=== PATIENT | male | born 1935 | race Caucasian/White ===

== ENCOUNTER 2016-08-19 07:44 | Inpatient (IN) | payer MEDICARE, BC ==
--- NOTE | 2016-08-19 08:22 | ED ---
General Adult HPI - General Chief complaint: Neuro Symptoms/Deficit Stated complaint: weakness Time Seen by Provider: 08/19/16 07:50 Source: patient, RN notes reviewed Mode of arrival: EMS - History of Present Illness Initial comments: This is a 80-year-old male who presents to the emergency department complaining of some weakness in his left leg as well as tingling in his face arm. Patient states she woke up at 5:30 this morning with those symptoms. Patient states last night prior to going to bed he was arguing with his and he was symptom -free. Patient states he has sensation in his face and arm but is just tingling. Patient states she has no weakness in his face arm he has no slurred speech. Denies any blurred vision. Patient denies any headache. Patient states his leg can move just fine but when he goes to walk on he feels like his left knee is giving out on him. Patient has no numbness of his leg. Patient denies any right-sided symptoms. Patient denies any chest pain difficulty breathing or shortness of breath. Patient denies any abdominal pain patient denies nausea vomiting diarrhea. Patient denies any recent history of fever chills or cough. Patient denies lightheadedness dizziness or near syncopal episode. Patient denies any recent injury or trauma. - Related Data Allergies Allergy/AdvReac Type Severity Reaction Status Date / Time Penicillins Allergy Unknown Verified 08/19/16 08:24 aspirin AdvReac Nausea & Verified 08/19/16 08:24 Vomiting Review of Systems ROS Statement: Those systems with pertinent positive or pertinent negative responses have been documented in the HPI. ROS Other: All systems not noted in ROS Statement are negative. Past Medical History Past Medical History: Diabetes Mellitus History of Any Multi-Drug Resistant Organisms: None Reported Past Surgical History: Coronary Bypass/CABG Past Psychological History: No Psychological Hx Reported Smoking Status: Former smoker Past Alcohol Use History: None Reported Past Drug Use History: None Reported General Exam - General Exam Comments Initial Comments: GENERAL: Patient is well-developed and well-nourished. Patient is nontoxic and well- hydrated and is in mild distress. ENT: Neck is soft and supple. No significant lymphadenopathy is noted. Oropharynx is clear. Moist mucous membranes. Neck has full range of motion without eliciting any pain. EYES: The sclera were anicteric and conjunctiva were pink and moist. Extraocular movements were intact and pupils were equal round and reactive to light. Eyelids were unremarkable. PULMONARY: Unlabored respirations. Good breath sounds bilaterally. No audible rales rhonchi or wheezing was noted. CARDIOVASCULAR: There is a regular rate and rhythm without any murmurs gallops or rubs. ABDOMEN: Soft and nontender with normal bowel sounds. No palpable organomegaly was noted. There is no palpable pulsatile mass. SKIN: Skin is clear with no lesions or rashes and otherwise unremarkable. NEUROLOGIC: Patient is alert and oriented x3. Cranial nerves II through XII are grossly intact. Motor and sensory are also intact. Normal speech, volume and content. Symmetrical smile. MUSCULOSKELETAL: Normal extremities with adequate strength and full range of motion. No lower extremity swelling or edema. No calf tenderness. LYMPHATICS: No significant lymphadenopathy is noted PSYCHIATRIC: Normal psychiatric evaluation. Course Vital Signs 08/19/16 08/19/16 07:46 09:36 Temperature 97.8 F Pulse Rate 68 64 Respiratory 18 18 Rate Blood Pressure 125/75 143/66 O2 Sat by Pulse 98 95 Oximetry Medical Decision Making - Medical Decision Making EKG shows sinus rhythm at 61 bpm. It was 264 QRS is 90 QT intervals 476 QTC is 479. EKG shows no ST segment elevation or depression or T wave normalities are noted. Chest x-ray shows no acute abnormality. Computed tomography scan of the head shows no acute abnormality. Patient still continues to feel the tingling in the side of his face and arm and he feels as though his legs weaker even though has full range of motion of his leg. I spoke with Dr. Cancino agreed to admit the patient admitted the patient and consulted neurology. - Lab Data Result diagrams: 08/19/16 08:31 08/19/16 08:31 Lab Results 08/19/16 08/19/16 08/19/16 Range/Units 08:31 08:31 08:31 WBC 6.2 (3.8-10.6) k/uL RBC 5.05 (4.30-5.90) m/uL Hgb 14.2 (13.0-17.5) gm/dL Hct 44.8 (39.0-53.0) % MCV 88.8 (80.0-100.0) fL MCH 28.0 (25.0-35.0) pg MCHC 31.6 (31.0-37.0) g/dL RDW 13.7 (11.5-15.5) % Plt Count 174 (150-450) k/uL Neutrophils % 75 % Lymphocytes % 13 % Monocytes % 6 % Eosinophils % 3 % Basophils % 1 % Neutrophils # 4.7 (1.3-7.7) k/uL Lymphocytes # 0.8 L (1.0-4.8) k/uL Monocytes # 0.4 (0-1.0) k/uL Eosinophils # 0.2 (0-0.7) k/uL Basophils # 0.0 (0-0.2) k/uL Hypochromasia Slight PT (9.0-12.0) sec INR (<1.1) APTT (22.0-30.0) sec Sodium 141 (137-145) mmol/L Potassium 4.8 (3.5-5.1) mmol/L Chloride 105 (98-107) mmol/L Carbon Dioxide 28 (22-30) mmol/L Anion Gap 8 mmol/L BUN 24 H (9-20) mg/dL Creatinine 0.99 (0.66-1.25) mg/dL Est GFR (MDRD) Af Amer >60 (>60 ml/min/1.73 sqM) Est GFR (MDRD) Non-Af >60 (>60 ml/min/1.73 sqM) Glucose 213 H (74-99) mg/dL Calcium 9.2 (8.4-10.2) mg/dL Total Bilirubin 1.5 H (0.2-1.3) mg/dL AST 16 L (17-59) U/L ALT 31 (21-72) U/L Alkaline Phosphatase 62 (38-126) U/L Total Creatine Kinase 64 (55-170) U/L CK-MB (CK-2) 1.4 (0.0-2.4) ng/mL CK-MB (CK-2) Rel Index 2.2 Troponin I <0.012 (0.000-0.034) ng/mL Total Protein 6.9 (6.3-8.2) g/dL Albumin 3.8 (3.5-5.0) g/dL 08/19/16 Range/Units 08:31 WBC (3.8-10.6) k/uL RBC (4.30-5.90) m/uL Hgb (13.0-17.5) gm/dL Hct (39.0-53.0) % MCV (80.0-100.0) fL MCH (25.0-35.0) pg MCHC (31.0-37.0) g/dL RDW (11.5-15.5) % Plt Count (150-450) k/uL Neutrophils % % Lymphocytes % % Monocytes % % Eosinophils % % Basophils % % Neutrophils # (1.3-7.7) k/uL Lymphocytes # (1.0-4.8) k/uL Monocytes # (0-1.0) k/uL Eosinophils # (0-0.7) k/uL Basophils # (0-0.2) k/uL Hypochromasia PT 11.5 (9.0-12.0) sec INR 1.2 (<1.1) APTT 26.7 (22.0-30.0) sec Sodium (137-145) mmol/L Potassium (3.5-5.1) mmol/L Chloride (98-107) mmol/L Carbon Dioxide (22-30) mmol/L Anion Gap mmol/L BUN (9-20) mg/dL Creatinine (0.66-1.25) mg/dL Est GFR (MDRD) Af Amer (>60 ml/min/1.73 sqM) Est GFR (MDRD) Non-Af (>60 ml/min/1.73 sqM) Glucose (74-99) mg/dL Calcium (8.4-10.2) mg/dL Total Bilirubin (0.2-1.3) mg/dL AST (17-59) U/L ALT (21-72) U/L Alkaline Phosphatase (38-126) U/L Total Creatine Kinase (55-170) U/L CK-MB (CK-2) (0.0-2.4) ng/mL CK-MB (CK-2) Rel Index Troponin I (0.000-0.034) ng/mL Total Protein (6.3-8.2) g/dL Albumin (3.5-5.0) g/dL Disposition Clinical Impression: Transient cerebral ischemia Disposition: ADMITTED IP TO THIS [facility] Time of Disposition: 10:30
[2016-08-19 08:47] LABS: Basophils % (A) 1 %; CH 27.8; CHCM 31.4; Eosinophils # (A) 0.2 k/uL (0-0.7); Eosinophils % (A) 3 %; HCT 44.8 % (39.0-53.0); HDW 2.61; HGB 14.2 gm/dL (13.0-17.5); Hypochromasia Slight; Luc # (Auto) 0.14; Luc % (Auto) 2; Lymphocytes # (A) 0.8 k/uL (1.0-4.8); Lymphocytes % (A) 13 %; MCHC 31.6 g/dL (31.0-37.0); MCV 88.8 fL (80.0-100.0); Mean Platelet Volume 7.5; Monocytes # (A) 0.4 k/uL (0-1.0); Monocytes % (A) 6 %; Neutrophils # (A) 4.7 k/uL (1.3-7.7); Neutrophils % (A) 75 %; RBC 5.05 m/uL (4.30-5.90); RDW 13.7 % (11.5-15.5); WBC 6.2 k/uL (3.8-10.6); WBC (Perox) 6.27
--- NOTE | 2016-08-19 08:53 | CT ---
EXAMINATION TYPE: CT brain wo con for TPA DATE OF EXAM: 08/19/2016 8:49 AM HISTORY: Lt side and face weakness CT DLP: 1017.9 mGycm. Automated Exposure Control for Dose Reduction was Utilized. TECHNIQUE: CT scan of the head is performed without contrast. COMPARISON: None. FINDINGS: There is no acute intracranial hemorrhage or midline shift identified. There is diffuse v entricular and sulcal prominence consistent with diffuse age-related cerebral atrophy. There is low- attenuation in the periventricular white matter consistent with chronic small vessel ischemic change. The globes are intact bilaterally. There is mild to moderate mucosal thickening involving ethmoid a nd sphenoid sinuses bilaterally. There is calcified plaque supraclinoid segment of both distal marketing operations intern al carotid arteries seen. IMPRESSION: No acute intracranial hemorrhage or midline shift. There is mild diffuse age-related ce rebral atrophy and chronic small vessel ischemic change noted.
--- NOTE | 2016-08-19 08:54 | XR ---
EXAMINATION TYPE: XR chest 2V DATE OF EXAM: 08/19/2016 8:48 AM COMPARISON: NONE HISTORY: Altered mental status, left leg weakness. TECHNIQUE: Frontal and lateral views of the chest are obtained. FINDINGS: Post CABG changes with mediastinal clips and sternal wires is present. There is chronic pa renchymal change without suspicious focal air space opacity, pleural effusion, or pneumothorax seen. The cardiac silhouette size is enlarged with atherosclerotic thoracic aorta. The osseous structure s are intact. IMPRESSION: Cardiomegaly and chronic changes without acute pulmonary process.
[2016-08-19 08:58] LABS: ALT 31 U/L (21-72); AST 16 U/L (17-59); Alkaline Phosphatase 62 U/L (38-126); Anion Gap 8 mmol/L; Blood Urea Nitrogen 24 mg/dL (9-20); Calcium 9.2 mg/dL (8.4-10.2); Carbon Dioxide 28 mmol/L (22-30); Chloride 105 mmol/L (98-107); Glucose 213 mg/dL (74-99); INR 1.2 (<1.1); Non-African American GFR(MDRD) >60 (>60 ml/min/1.73 sqM); Partial Thromboplastin Time 26.7 sec (22.0-30.0); Potassium 4.8 mmol/L (3.5-5.1); Prothrombin Time 11.5 sec (9.0-12.0); Sodium 141 mmol/L (137-145); Total Bilirubin 1.5 mg/dL (0.2-1.3); Total Protein 6.9 g/dL (6.3-8.2)
[2016-08-19 09:21] LABS: Creatine Kinase 64 U/L (55-170)
[2016-08-19 09:35] LABS: Creatine Kinase MB 1.4 ng/mL (0.0-2.4); Troponin I <0.012 ng/mL (0.000-0.034)
--- NOTE | 2016-08-19 12:27 | US ---
EXAMINATION TYPE: US carotid duplex BILAT DATE OF EXAM: 08/19/2016 12:13 PM COMPARISON: NONE CLINICAL HISTORY: Stenosis. Left side and facial weakness, no h/o stroke EXAM MEASUREMENTS: RIGHT: Peak Systolic Velocity (PSV) cm/sec ----- Right CCA: 58.1 ----- Right ICA: 95.2 ----- Right ECA: 105.8 ICA/CCA ratio: 1.6 RIGHT: End Diastole cm/sec ----- Right CCA: 13.6 ----- Right ICA: 27.0 ----- Right ECA: 8.0 LEFT: Peak Systolic Velocity (PSV) cm/sec ----- Left CCA: 101.1 ----- Left ICA: 102.6 ----- Left ECA: 108.0 ICA/CCA ratio: 1.0 LEFT: End Diastole cm/sec ----- Left CCA: 23.6 ----- Left ICA: 31.1 ----- Left ECA: 9.1 VERTEBRALS (direction of flow): Right Vertebral: unable to obtain signal after multiple attempts Left Vertebral: Antegrade Very challenging patient to scan due to thick neck and pulsatile vessels Heterogeneous plaque bilaterally with no significant stenosis seen, unable to obtain right vert signa l due to reasons stated above Exam is suboptimal per technologist as noted above. Grayscale images show mild shadowing peripheral p laque at both carotid bulbs. Velocity measurements in visualized portion of both internal carotid art eries appears within normal limits. Right vertebral artery normal antegrade flow could not be confirm ed. IMPRESSION: Suboptimal study without hemodynamically significant stenosis clearly seen in either inte rnal carotid artery.
--- NOTE | 2016-08-19 14:48 | P.CNNES ---
History of Present Illness Consult date: 08/19/16 Reason for Consult: Patient admitted with left-sided numbness and weakness and possible TIA. History of Present Illness: This patient is a 80-year-old right-handed white male who was in his usual state of health until early this morning. Patient states that he awoke at about 5:30 AM and noticed that he was having significant numbness involving his left side. Patient stated that not only was the left side numb but it was also weak. He tried to stand up at home and noted since that his left leg was giving way. He then immediately sat down and still continue to experience left- sided paresthesias. Apparently this extended from the left face arm and leg. His was informed of these findings and she immediately called EMS. Patient states he was put on the rig and while in route to the emergency room at [facility] he noted some improvement. Apparently the right was very rough and he thinks he may have had a nerve problem that caused his symptoms. He denies any previous history of TIA or stroke. He has a long- standing history of diabetes mellitus as well as coronary artery disease. He is undergone coronary artery bypass grafting in 2009. He was brought into the emergency room where he was seen by Dr. Zapien. He was sent for a computed tomography scan of the brain which revealed no acute intracranial hemorrhage or midline shift. There was mild diffuse age-related cerebral atrophy and chronic small vessel ischemic changes noted. Patient was up screaming admitted to the hospital. He was not felt to be a candidate for TPA as he was outside of the therapeutic window. Patient subtotally was sent for a carotid Doppler ultrasound which was a suboptimal study without hemodynamically significant stenosis in either internal carotid artery. Patient is unaware of his last hemoglobin A1c are last serum cholesterol blood checked and we will have these done for him. Patient denies any previous history of TIA or stroke. He is ALLERGIC to aspirin. He did not express she had any changes in his speech during these recent hours of the onset of symptoms. He still has some areas of numbness mostly in the left leg but the majority of symptoms have improved since his admission to the hospital. The patient is now admitted and neurology has been consulted for further evaluation and recommendations. Review of Systems Constitutional: Denies chills, Denies fever Eyes: denies blurred vision, denies pain Ears, nose, mouth and throat: Denies headache, Denies sore throat Cardiovascular: Denies chest pain, Denies shortness of breath Respiratory: Denies cough Gastrointestinal: Denies abdominal pain, Denies diarrhea, Denies nausea, Denies vomiting Musculoskeletal: Denies myalgias Integumentary: Denies pruritus, Denies rash Neurological: Denies numbness, Denies weakness Psychiatric: Denies anxiety, Denies depression Endocrine: Denies fatigue, Denies weight change Past Medical History Past Medical History: Diabetes Mellitus History of Any Multi-Drug Resistant Organisms: None Reported Past Surgical History: Coronary Bypass/CABG Past Psychological History: No Psychological Hx Reported Smoking Status: Former smoker Past Alcohol Use History: None Reported Past Drug Use History: None Reported Medications and Allergies Home Medications Medication Instructions Recorded Confirmed Type Aspirin EC [Ecotrin Low Dose] 81 mg PO DAILY 08/19/16 08/19/16 History Carvedilol [Coreg] 6.25 mg PO BID-W/MEALS 08/19/16 08/19/16 History Clopidogrel [Plavix] 75 mg PO DAILY 08/19/16 08/19/16 History Fish Oil/Dha/Epa [Fish Oil 1,200 1 cap PO DAILY 08/19/16 08/19/16 History mg Fish Oil] Insulin NPL/Insulin Lispro 12 units SQ W/LUNCH 08/19/16 08/19/16 History [humaLOG Mix 50-50 Kwikpen] Insulin NPL/Insulin Lispro 37 units SQ W/BRKFST 08/19/16 08/19/16 History [humaLOG Mix 50-50 Kwikpen] Insulin NPL/Insulin Lispro 42 units SQ W/SUPPER 08/19/16 08/19/16 History [humaLOG Mix 50-50 Kwikpen] L.acidoph,Paracasei, B.lactis 1 cap PO DAILY 08/19/16 08/19/16 History [Probiotic] Lisinopril [Zestril] 10 mg PO DAILY 08/19/16 08/19/16 History Multivitamins, Thera [Multivitamin 1 tab PO DAILY 08/19/16 08/19/16 History (formulary)] Simvastatin [Zocor] 40 mg PO HS 08/19/16 08/19/16 History Allergies Allergy/AdvReac Type Severity Reaction Status Date / Time Penicillins Allergy Rapid Verified 08/19/16 10:44 Heart Rate aspirin AdvReac Nausea & Verified 08/19/16 10:44 Vomiting Physical Examination - Vital Signs Vital Signs: Vital Signs Temp Pulse Resp BP Pulse Ox 08/19/16 12:55 98.2 F 64 18 154/74 94 L 08/19/16 12:54 98.2 F 64 18 154/74 94 L 08/19/16 10:58 97.7 F 66 18 145/67 97 - Constitutional General appearance: average body habitus, cooperative, obese - EENT EENT: PERRL, mucous membranes moist - Respiratory Respiratory: lungs clear - Cardiovascular Cardiovascular: regular rate, normal S1, normal S2 Extremities: no peripheral edema bilaterally - Gastrointestinal Gastrointestinal: normoactive bowel sounds - Integumentary Integumentary: normal - Neurologic Cranial nerve examination: PERRL, EOMI, VFF, V1/V2/V3 grossly intact, face symmetric, tongue midline, intact gag reflex, intact corneal reflex, normal palatal elevation Speech examination: intact Sensorimotor examination: intact Detailed motor examination: grossly full strength in all extremities Motor examination - right side: 5/5: biceps, triceps, wrist flexion, wrist extension, security site supervisor, hip flexors, knee extensors, dorsiflexion, toe extension (EHL) , plantarflexion Motor examination - left side: 5/5: biceps, triceps, wrist flexion, wrist extension, security site supervisor, hip flexors, knee extensors, dorsiflexion, toe extension (EHL) , plantarflexion Detailed sensory examination: light touch Reflex and gait examination: intact Reflexes: 1+: ankle, bicep, knee, tricep - Musculoskeletal Musculoskeletal: no pain - Psychiatric Psychiatric: mood/affect appropriate, cooperative Results - Laboratory Findings CBC and BMP: 08/19/16 08:31 08/19/16 08:31 Assessment and Plan (1) Acute right arterial ischemic stroke, MCA (middle cerebral artery) Status: Acute Code(s): I63.511 - CEREB INFRC D/T UNSP OCCLS OR STENOS OF RIGHT MID CEREB ART (2) Diabetes mellitus Status: Acute Code(s): E11.9 - TYPE 2 DIABETES MELLITUS WITHOUT COMPLICATIONS (3) Coronary artery disease involving coronary bypass graft Status: Acute Code(s): I25.810 - ATHEROSCLEROSIS OF CABG W/O ANGINA PECTORIS (4) Diabetic neuropathy Status: Acute Code(s): E11.40 - TYPE 2 DIABETES MELLITUS WITH DIABETIC NEUROPATHY, UNSP Plan: This patient is a 80-year-old right-handed white male admitted to Hospital with symptoms of acute left-sided paresthesias and weakness. Symptoms began at 5:30 in the morning and he finally was brought into the emergency room for further evaluation. He was seen in the ER by Dr. Zapien. And went a computed tomography scan of the brain results which are noted above. Subsequent admitted to the hospital. He continues to have mild left-sided paresthesia. Skull history suggests possibility of acute right hemispheric stroke. We have recommended he undergo a complete stroke evaluation. All of his stroke risk factors are reviewed with him today in detail. We would recommend an MRI of the brain for further evaluation. CAT scan of the brain failed to reveal any acute stroke. The patient is ALLERGIC to aspirin so in this case would consider Plavix for secondary stroke prevention. His overall prognosis at this time remains very guarded. We will continue close neurological follow-up for this patient during this admission. Time with Patient: Greater than 30
--- NOTE | 2016-08-19 15:39 | HP ---
DATE OF ADMISSION: 08/19/2016 CHIEF COMPLAINT: A 80-year-old white male with weakness in his left leg, tingling in his face and his arm for 6 hours. HISTORY OF PRESENT ILLNESS: This is a 80-year-old white male who was brought into the hospital after arguing with his the night before, when he was symptom-free ( ) face and arm were tingling and no weakness in his face and arm. No slurred speech. He felt like his left knee was giving out on him. He has some numbness in his leg. His left arm had some tingling in it. The right side of his arm, leg and face were normal. No chest pain or shortness of breath. No trauma. ALLERGIES: PENICILLIN and ASPIRIN. REVIEW OF SYSTEMS: Fourteen-point review of systems negative except as mentioned in HPI. PAST MEDICAL HISTORY: 1. Diabetes mellitus. 2. CABG surgery. Former smoker. No alcohol. No illicit drugs. His son and are here. He is an ex- man. He worked ( ) 35 years. PHYSICAL EXAM: Well nourished, well developed. BMI well over 40. NEUROLOGIC: No facial asymmetry. Cranial nerves are intact. OPHTHALMOLOGIC: Pupils equal, round and reactive to light and accommodation. LUNGS: Clear. CARDIOVASCULAR: Regular rate, rhythm. ABDOMEN: Distended due to obesity. Soft. MUSCULOSKELETAL: Strength equal x4. EXTREMITIES: Normal speech. No facial asymmetry. Giving appropriate answers. PSYCH: Appears anxious, nervous. Blood pressure 120s to 140s over 60s to 70s. Pulse is 64 to 68. Temperature 97.8, respiratory rate 16 to 18. White count 6.2, hemoglobin 14.2. BUN 24, creatinine 0.99. Bilirubin is 1.5. ASSESSMENT: 1. Possible transient ischemic attack. Rule out cerebrovascular accident. Suspect lumbar radiculopathy with the left leg weakness. Will have to rule out TIA for the left facial numbness. Carotid echo ordered. 2. Diabetes mellitus will be controlled with Accu-Cheks before meals and at bedtime. 3. His home medications for hypertension. 4. Obesity. Weight loss counseling given.
[2016-08-19] MEDS: INSULIN NPL SQ SCH ×2 (15:45→17:21)
[2016-08-19] MEDS: INSULIN LISPRO SQ SCH ×2 (15:45→17:21)
--- NOTE | 2016-08-19 17:11 | ECHOF ---
Referral Reason:dyspnea/tia MEASUREMENTS -------- HEIGHT: 182.9 cm WEIGHT: 117.9 kg BP: IVSd: 1.2 cm (0.6 - 1.1) LVIDd: 4.5 cm (3.9 - 5.3) LVPWd: 1.3 cm (0.6 - 1.1) IVSs: 1.6 cm LVIDs: 2.8 cm LVPWs: 1.8 cm Ao Diam: 2.9 cm (2.0 - 3.7) AV Cusp: 1.4 cm (1.5 - 2.6) LA Diam: 3.8 cm (2.7 - 3.8) MV EXCURSION: 15.618 mm (> 18.000) MV EF SLOPE: 38 mm/s (70 - 150) EPSS: 1.1 cm MV E Duong: 0.86 m/s MV DecT: 168 ms MV A Duong: 0.59 m/s MV E/A Ratio: 1.47 AV maxP.59 mmHg AV meanP.22 mmHg RAP: 5.00 mmHg RVSP: 8.33 mmHg FINDINGS -------- Sinus rhythm. This was a technically difficult study with suboptimal views. There is mild concentric left ventricular hypertrophy. Overall left ventricular systolic function is low-normal with, an EF between 50 - 55 %. There is paradoxical/dysynergic septal motion consistent with post-operative status. The right ventricle is normal in size and function. The left atrium is normal in size. The right atrium is normal in size. 1.5mg of Definity was utilized for enhancement of images Aortic valve is trileaflet and is mildly thickened. There is mild aortic stenosis present. Peak/mean gradient across the Aortic Valve is 15.59mmHg / 11.22mmHg. The mitral valve leaflets are mildly thickened. Mild mitral regurgitation is present. Mild tricuspid regurgitation present. The right ventricular systolic pressure, as measured by Doppler, is 8.33mmHg. Pulmonic valve appears structurally normal. The aortic root size is normal. The pericardium is normal. CONCLUSIONS -------- 1. Sinus rhythm. 2. Aortic valve is trileaflet and is mildly thickened. 3. There is mild aortic stenosis present. 4. Peak/mean gradient across the Aortic Valve is 15.59mmHg / 11.22mmHg. 5. The mitral valve leaflets are mildly thickened. 6. Mild mitral regurgitation is present. 7. Mild tricuspid regurgitation present. 8. The right ventricular systolic pressure, as measured by Doppler, is 8.33mmHg. 9. Pulmonic valve appears structurally normal. 10. The aortic root size is normal. 11. The pericardium is normal. 12. This was a technically difficult study with suboptimal views. 13. There is mild concentric left ventricular hypertrophy. 14. Overall left ventricular systolic function is low-normal with, an EF between 50 - 55 %. 15. There is paradoxical/dysynergic septal motion consistent with post-operative status. 16. The right ventricle is normal in size and function. 17. The left atrium is normal in size. 18. The right atrium is normal in size. 19. 1.5mg of Definity was utilized for enhancement of images DIRECTOR PROFESSIONAL SERVICES: Ewelina Liao RDCS
[2016-08-19] MEDS: CARVEDILOL 6.25 MG TAB PO SCH (17:17)
[2016-08-19 17:22] LABS: Glucose,Whole Blood 162 mg/dL (75-99)
[2016-08-19 17:53] VITALS: BMI 36.2
[2016-08-19] MEDS: ATORVASTATIN 20 MG TAB PO SCH (20:20)
[2016-08-20] MEDS: CARVEDILOL 6.25 MG TAB PO SCH (06:52)
[2016-08-20 07:00] LABS: Cholesterol 108 mg/dL (<200); HDL Cholesterol 38 mg/dL (40-60); Triglycerides 97 mg/dL (<150)
[2016-08-20] MEDS ORDERED: NON-FORMULARY DRUG (Fish Oil/Dha/Epa [Fish Oil 1,200 Mg Fish Oil] 1 CAP) PO SCH (09:00)
[2016-08-20] MEDS: INSULIN LISPRO SQ SCH ×3 (10:14→17:55)
[2016-08-20] MEDS: INSULIN NPL SQ SCH ×3 (10:14→17:55)
[2016-08-20] MEDS: LISINOPRIL 10 MG TAB PO SCH (10:15)
[2016-08-20] MEDS: CLOPIDOGREL 75 MG TAB PO SCH (10:15)
[2016-08-20] MEDS: ASPIRIN 81 MG CHEW PO SCH (10:15)
[2016-08-20] MEDS: LACTOBACILLUS ACIDOPH & BULGAR 1 EACH PACKET PO SCH (10:15)
[2016-08-20] MEDS ORDERED: CARVEDILOL 6.25 MG TAB PO ONE (11:59)
--- NOTE | 2016-08-20 12:03 | P.CRDCN ---
History of Present Illness Consult date: 08/20/16 Chief complaint: left sided weakness History of present illness: This is a pleasant 80-year-old gentleman who sees a smocker out of the town at [facility] with a past medical history significant for CAD and status post stenting as well as CABG with unknown details, diabetes, hypertension, dyslipidemia presented to the hospital with left sided weakness. The patient had an argument with his yesterday and subsequently he developed left-sided weakness. He did not have any symptoms of chest pain or discomfort, difficulty breathing, heart racing or fluttering, dizziness or lightheadedness or syncope. The patient was seen and evaluated by the neurology service and a computed tomography scan of the brain was performed and showed nothing and an MRI of the brain was ordered which still pending at this point. A carotid ultrasound was performed and showed no significant stenoses. The patient had one set of cardiac enzymes came in to be unremarkable. The EKG showed sinus rhythm with first-degree AV block and nonspecific changes. We get involved in the care of the patient because of his prior history of CAD and revascularization and also last night he had an episode of narrow complex tachycardia was a short episode and to me consistent with SVT. At this point, I will obtain 2 more sets of serial cardiac enzymes. We will follow-up with the neurology workup as well. I will obtain an echocardiogram was Doppler. I'm going to increase the dose of Coreg as well. We'll continue following up with him. Past Medical History Past Medical History: Diabetes Mellitus History of Any Multi-Drug Resistant Organisms: None Reported Past Surgical History: Coronary Bypass/CABG Past Anesthesia/Blood Transfusion Reactions: No Reported Reaction Past Psychological History: No Psychological Hx Reported Smoking Status: Former smoker Past Alcohol Use History: None Reported Past Drug Use History: None Reported Medications and Allergies Home Medications Medication Instructions Recorded Confirmed Type Aspirin EC [Ecotrin Low Dose] 81 mg PO DAILY 08/19/16 08/19/16 History Carvedilol [Coreg] 6.25 mg PO BID-W/MEALS 08/19/16 08/19/16 History Clopidogrel [Plavix] 75 mg PO DAILY 08/19/16 08/19/16 History Fish Oil/Dha/Epa [Fish Oil 1,200 1 cap PO DAILY 08/19/16 08/19/16 History mg Fish Oil] Insulin NPL/Insulin Lispro 12 units SQ W/LUNCH 08/19/16 08/19/16 History [humaLOG Mix 50-50 Kwikpen] Insulin NPL/Insulin Lispro 37 units SQ W/BRKFST 08/19/16 08/19/16 History [humaLOG Mix 50-50 Kwikpen] Insulin NPL/Insulin Lispro 42 units SQ W/SUPPER 08/19/16 08/19/16 History [humaLOG Mix 50-50 Kwikpen] L.acidoph,Paracasei, B.lactis 1 cap PO DAILY 08/19/16 08/19/16 History [Probiotic] Lisinopril [Zestril] 10 mg PO DAILY 08/19/16 08/19/16 History Multivitamins, Thera [Multivitamin 1 tab PO DAILY 08/19/16 08/19/16 History (formulary)] Simvastatin [Zocor] 40 mg PO HS 08/19/16 08/19/16 History Allergies Allergy/AdvReac Type Severity Reaction Status Date / Time Penicillins Allergy Rapid Verified 08/19/16 10:44 Heart Rate aspirin AdvReac Nausea & Verified 08/19/16 10:44 Vomiting Physical Exam Vitals: Vital Signs Temp Pulse Pulse Resp BP BP Pulse Ox 08/20/16 08:00 97.3 F L 73 18 159/73 95 08/20/16 04:00 97.0 F L 77 16 169/83 96 08/20/16 00:00 96.8 F L 68 16 132/63 95 08/19/16 20:00 97.0 F L 67 16 136/75 96 08/19/16 15:50 96.6 F L 80 16 176/84 98 08/19/16 12:55 98.2 F 64 18 154/74 94 L 08/19/16 12:54 98.2 F 64 18 154/74 94 L Intake and Output 08/19/16 08/20/16 08/20/16 22:59 06:59 14:59 Intake Total 1480 30 Output Total 1000 700 Balance 480 -670 Intake: IV 30 Flush 30 Oral 1480 Output: Urine 1000 700 Other: Voiding Method Toilet Toilet Urinal Urinal # Voids 1 2 Weight 120.6 kg - Constitutional General appearance: no acute distress - Respiratory Respiratory: bilateral: CTA - Cardiovascular Rhythm: regular Heart sounds: normal: S1, S2 Results 08/19/16 08:31 08/19/16 08:31 Lipids 08/20/16 Range/Units 06:27 Triglycerides 97 (<150) mg/dL Cholesterol 108 (<200) mg/dL HDL Cholesterol 38 L (40-60) mg/dL Current Medications Generic Name Dose Route Start Last Admin Trade Name Javierq PRN Reason Stop Dose Admin Aspirin 81 mg 08/20/16 09:00 08/20/16 10:15 Aspirin PO 81 mg DAILY JAELYN Administration Atorvastatin Calcium 20 mg 08/19/16 21:00 08/19/16 20:20 Lipitor PO 20 mg HS JAELYN Administration Clopidogrel Bisulfate 75 mg 08/20/16 09:00 08/20/16 10:15 Plavix PO 75 mg DAILY JAELYN Administration Insulin Lispro Protam/Lispro Human 12 unit 08/19/16 12:30 08/19/16 15:45 Humalog Mix 50-50 Vial SQ 12 unit W/LUNCH JAELYN Administration Insulin Lispro Protam/Lispro Human 37 unit 08/20/16 07:30 08/20/16 10:14 Humalog Mix 50-50 Vial SQ Not Given W/BRKFST JAELYN Insulin Lispro Protam/Lispro Human 42 unit 08/19/16 17:30 08/19/16 17:21 Humalog Mix 50-50 Vial SQ 35 unit W/SUPPER JAELYN Administration Lactobacillus Acidoph/Bulgaricus 1 each 08/20/16 09:00 08/20/16 10:15 Lactinex PO 1 each DAILY JAELYN Administration Lisinopril 10 mg 08/20/16 09:00 08/20/16 10:15 Zestril PO 10 mg DAILY JAELYN Administration Multivitamins 1 each 08/20/16 12:00 Theragran PO DAILY@1200 JAELYN Intake and Output 08/19/16 08/20/16 08/20/16 22:59 06:59 14:59 Intake Total 1480 30 Output Total 1000 700 Balance 480 -670 Intake: IV 30 Flush 30 Oral 1480 Output: Urine 1000 700 Other: Voiding Method Toilet Toilet Urinal Urinal # Voids 1 2 Weight 120.6 kg Assessment and Plan Plan: assessment Left sided weakness which has improved CAD and status post revascularization was unknown details Diabetes type 2 Hypertension Dyslipidemia Short episodes of SVT Plan Increase the dose of Coreg Obtain an echocardiogram was Doppler Serial cardiac enzymes Follow-up with the patient
[2016-08-20 12:08] LABS: Glucose,Whole Blood 207 mg/dL (75-99)
[2016-08-20] MEDS: MULTIVITAMINS, THERA 1 EACH TAB PO SCH (12:08)
--- NOTE | 2016-08-20 13:56 | PN ---
DATE OF SERVICE: 08/20/2016 SUBJECTIVE: 80-year-old white male, who had neurology consult for TIA and neurology saw him. Doing better today. He was diagnosed with acute right arterial ischemic stroke and TIA, diabetes mellitus, coronary artery disease and diabetic neuropathy. He is being re-evaluated by neurology. Carotid ultrasound was negative so far. ( ) do an MRI of the brain. He is ALLERGIC TO ASPIRIN so we can put him on Plavix. PROGNOSIS: Guarded. Please see further orders.
[2016-08-20 13:59] LABS: Hemoglobin A1C 7.8 % (4.2-6.1)
--- NOTE | 2016-08-20 15:10 | P.PN ---
Subjective This patient is a 80-year-old white male who was seen yesterday on neurology consultation for evaluation of left-sided weakness. Patient initially presented to the emergency room with resulting left arm and leg weakness. Patient also experienced paresthesias on his left side and was brought in for evaluation of TIA versus stroke. Initial computed tomography scan of the brain failed to reveal any significant changes. He has been scheduled for MRI of the brain for further evaluation. Patient has a history of coronary artery disease and has undergone stenting as well as CABG several years ago. He is followed by a prospecting observer and the [place] area. Carotid ultrasound was completed and failed to reveal any significant carotid artery stenosis. One set of cardiac enzymes came back unremarkable. His EKG shows normal sinus rhythm with first- degree AV block. We're waiting follow-up cardiac enzyme studies to be done. Overall the patient continues to do fairly well today. He underwent laboratory testing and we will follow up on those results later today as well. Patient continues on Plavix plus aspirin for secondary stroke prevention. He is also being treated with atorvastatin 20 mg daily for hyperlipidemia. Patient states he has had no further recurrence of left-sided weakness or paresthesias this morning. He was able to ambulate in the hallway without having any give way weakness in his left lower extremity. He will likely be able to complete a routine EEG tomorrow for further evaluation. Patient is to continue on Plavix and aspirin at this time for secondary stroke prevention. His overall prognosis at this time remains guarded. Objective - Vital Signs Vital signs: Vital Signs Temp 97.3 F L 08/20/16 08:00 Pulse 73 08/20/16 08:00 Resp 18 08/20/16 08:00 BP 159/73 08/20/16 08:00 Pulse Ox 95 08/20/16 08:00 Intake & Output 08/19/16 08/20/16 08/20/16 18:59 06:59 18:59 Intake Total 120 1510 Output Total 300 1700 Balance -180 -190 Weight 117.9 kg 120.6 kg Intake: IV 30 Flush 30 Oral 120 1480 Output: Urine 300 1700 Other: Voiding Method Toilet Urinal # Voids 1 2 # Bowel Movements 0 - Exam Physical examination: PHYSICAL EXAMINATION: Patient is resting comfortably in bed. VITAL SIGNS: Blood pressure is [159/73]. Heart rate is [73]. Respiration is [18] . Temperature is [97.3]. HEENT: Head is atraumatic, neck is supple, there were no carotid bruits. CHEST: Lungs are clear to auscultation and percussion. CARDIAC: S1, S2 normal rate and rhythm. There is no murmur. ABDOMEN: Soft and nontender. Bowel sounds are present. EXTREMITIES: There is no pedal edema. Peripheral pulses are present. Neurological examination: Patient's neurological examination is unchanged from yesterday. - Labs CBC & Chem 7: 08/19/16 08:31 08/19/16 08:31 Labs: Abnormal Lab Results - Last 24 Hours (Table) 08/19/16 08/20/16 08/20/16 Range/Units 17:18 06:27 12:06 POC Glucose (mg/dL) 162 H 207 H (75-99) mg/dL HDL Cholesterol 38 L (40-60) mg/dL Assessment and Plan (1) Acute right arterial ischemic stroke, MCA (middle cerebral artery) Status: Acute Code(s): I63.511 - CEREB INFRC D/T UNSP OCCLS OR STENOS OF RIGHT MID CEREB ART (2) Diabetes mellitus Status: Acute Code(s): E11.9 - TYPE 2 DIABETES MELLITUS WITHOUT COMPLICATIONS (3) Coronary artery disease involving coronary bypass graft Status: Acute Code(s): I25.810 - ATHEROSCLEROSIS OF CABG W/O ANGINA PECTORIS (4) Diabetic neuropathy Status: Acute Code(s): E11.40 - TYPE 2 DIABETES MELLITUS WITH DIABETIC NEUROPATHY, UNSP
[2016-08-20] MEDS: CARVEDILOL 12.5 MG TAB PO SCH (17:54)
[2016-08-20 17:58] LABS: Glucose,Whole Blood 193 mg/dL (75-99)
[2016-08-20] MEDS: ATORVASTATIN 20 MG TAB PO SCH (19:54)
[2016-08-21] MEDS: LISINOPRIL 10 MG TAB PO SCH (08:58)
[2016-08-21] MEDS: CLOPIDOGREL 75 MG TAB PO SCH (08:58)
[2016-08-21] MEDS: CARVEDILOL 12.5 MG TAB PO SCH ×2 (08:59→17:08)
[2016-08-21] MEDS: LACTOBACILLUS ACIDOPH & BULGAR 1 EACH PACKET PO SCH (08:59)
[2016-08-21] MEDS: ASPIRIN 81 MG CHEW PO SCH (08:59)
[2016-08-21 09:38] LABS: Glucose,Whole Blood 162 mg/dL (75-99)
[2016-08-21] MEDS: INSULIN NPL SQ SCH ×3 (10:53→20:54)
[2016-08-21] MEDS: INSULIN LISPRO SQ SCH ×3 (10:53→20:54)
[2016-08-21 11:18] LABS: Glucose,Whole Blood 264 mg/dL (75-99)
[2016-08-21] MEDS: MULTIVITAMINS, THERA 1 EACH TAB PO SCH (12:57)
[2016-08-21 17:03] LABS: Glucose,Whole Blood 116 mg/dL (75-99)
--- NOTE | 2016-08-21 19:10 | P.PN ---
Subjective This patient is a 80-year-old white male who was seen yesterday on neurology consultation for evaluation of left-sided weakness. Patient initially presented to the emergency room with resulting left arm and leg weakness. Patient also experienced paresthesias on his left side and was brought in for evaluation of TIA versus stroke. Initial computed tomography scan of the brain failed to reveal any significant changes. He has been scheduled for MRI of the brain for further evaluation. Patient has a history of coronary artery disease and has undergone stenting as well as CABG several years ago. He is followed by a stencil inspector and the [place] area. Carotid ultrasound was completed and failed to reveal any significant carotid artery stenosis. One set of cardiac enzymes came back unremarkable. His EKG shows normal sinus rhythm with first- degree AV block. We're waiting follow-up cardiac enzyme studies to be done. Overall the patient continues to do fairly well today. He underwent laboratory testing and we will follow up on those results later today as well. Patient continues on Plavix plus aspirin for secondary stroke prevention. He is also being treated with atorvastatin 20 mg daily for hyperlipidemia. Patient states he has had no further recurrence of left-sided weakness or paresthesias this morning. He was able to ambulate in the hallway without having any give way weakness in his left lower extremity. He will likely be able to complete a routine EEG today for further evaluation. Patient is still not completed his MRI of the brain. Apparently this will be scheduled possibly later tonight or tomorrow. Once MRI is completed he may be considered for discharge to home. Patient is to continue on Plavix and aspirin at this time for secondary stroke prevention. His overall prognosis at this time remains guarded. Objective - Vital Signs Vital signs: Vital Signs Temp 96.2 F L 08/21/16 15:00 Pulse 63 08/21/16 16:00 Resp 18 08/21/16 16:00 BP 131/60 08/21/16 15:00 Pulse Ox 95 08/21/16 15:00 Intake & Output 08/21/16 08/21/16 08/22/16 06:59 18:59 06:59 Intake Total 480 200 Balance 480 200 Weight 119 kg Intake: Oral 480 200 Other: Voiding Method Toilet Toilet Urinal Urinal # Voids 1 - Exam Physical examination: PHYSICAL EXAMINATION: Patient is resting comfortably in bed. VITAL SIGNS: Blood pressure is [131/60]. Heart rate is [63]. Respiration is [18] . Temperature is [97.0]. HEENT: Head is atraumatic, neck is supple, there were no carotid bruits. CHEST: Lungs are clear to auscultation and percussion. CARDIAC: S1, S2 normal rate and rhythm. There is no murmur. ABDOMEN: Soft and nontender. Bowel sounds are present. EXTREMITIES: There is no pedal edema. Peripheral pulses are present. Neurological examination: Patient's neurological examination is unchanged from yesterday. - Labs CBC & Chem 7: 08/19/16 08:31 08/19/16 08:31 Labs: Abnormal Lab Results - Last 24 Hours (Table) 08/21/16 08/21/16 08/21/16 Range/Units 09:35 11:14 17:02 POC Glucose (mg/dL) 162 H 264 H 116 H (75-99) mg/dL Assessment and Plan (1) Acute right arterial ischemic stroke, MCA (middle cerebral artery) Status: Acute Code(s): I63.511 - CEREB INFRC D/T UNSP OCCLS OR STENOS OF RIGHT MID CEREB ART (2) Diabetes mellitus Status: Acute Code(s): E11.9 - TYPE 2 DIABETES MELLITUS WITHOUT COMPLICATIONS (3) Coronary artery disease involving coronary bypass graft Status: Acute Code(s): I25.810 - ATHEROSCLEROSIS OF CABG W/O ANGINA PECTORIS (4) Diabetic neuropathy Status: Acute Code(s): E11.40 - TYPE 2 DIABETES MELLITUS WITH DIABETIC NEUROPATHY, UNSP Plan: This patient is a 80-year-old right-handed white male admitted to Hospital with symptoms of acute left-sided paresthesias and weakness. Symptoms began at 5:30 in the morning and he finally was brought into the emergency room for further evaluation. He was seen in the ER by Dr. Zapien. And went a computed tomography scan of the brain results which are noted above. Subsequent admitted to the hospital. He continues to have mild left-sided paresthesia. Skull history suggests possibility of acute right hemispheric stroke. We have recommended he undergo a complete stroke evaluation. All of his stroke risk factors are reviewed with him today in detail. We would recommend an MRI of the brain for further evaluation. CAT scan of the brain failed to reveal any acute stroke. The patient is ALLERGIC to aspirin so in this case would consider Plavix for secondary stroke prevention. Patient is still waiting to complete MRI of the brain today. Hopefully this will be completed later tonight. If his MRI is normal he may be considered for discharge home tomorrow. His overall prognosis at this time remains very guarded. We will continue close neurological follow- up for this patient during this admission.
[2016-08-21] MEDS: ATORVASTATIN 20 MG TAB PO SCH (20:55)
--- NOTE | 2016-08-21 21:58 | MR ---
EXAMINATION TYPE: MR brain wo con DATE OF EXAM: 08/21/2016 8:27 PM COMPARISON: NONE HISTORY: Left sided weakness and numbness FINDINGS: The ventricles, basal cisterns and sulci overlying the cerebral convexities are mildly enlarged. There is evidence of mild periventricular white matter ischemic demyelination. Remote deep white matter insults are also noted. No acute edema is seen on diffusion weighted imaging. There is no evidence for midline shift or mass effect. Acute intracranial hemorrhage or extra-axial collection is not evident. The paranasal sinuses and mastoid air cells are well-aerated. IMPRESSION: Age-related atrophic and chronic small vessel ischemic change. No acute intracranial process at this time.
[2016-08-22 06:36] LABS: Glucose,Whole Blood 156 mg/dL (75-99)
[2016-08-22 07:46] VITALS: BP 183/82; PULSE 71; RESP 18; TEMP 97.7
[2016-08-22] MEDS: CLOPIDOGREL 75 MG TAB PO SCH (07:50)
[2016-08-22] MEDS: ASPIRIN 81 MG CHEW PO SCH (07:50)
[2016-08-22] MEDS: CARVEDILOL 12.5 MG TAB PO SCH (07:50)
[2016-08-22] MEDS: LACTOBACILLUS ACIDOPH & BULGAR 1 EACH PACKET PO SCH (07:50)
[2016-08-22] MEDS: LISINOPRIL 10 MG TAB PO SCH (07:50)
[2016-08-22] MEDS: INSULIN NPL SQ SCH (07:59)
[2016-08-22] MEDS: INSULIN LISPRO SQ SCH (07:59)
--- NOTE | 2016-08-22 08:21 | PN ---
SUBJECTIVE: This is a 80-year-old white male with TIA. He was going to be discharged home as he is able to ambulate his arms and legs good. He had no chest pain or shortness of breath, but he did not have his MRI the brain. He wants to be held overnight, Dr. Curry until he gets MRI of the brain. Clinically is improved. GI: Soft. HEMATOLOGIC: Negative Homans. ASSESSMENT: 1. Transient ischemic attack. 2. History of hypertension. 3. Obesity. Continue the next 24 to 48 hours for possible discharge after MRI of the brain is done.
--- NOTE | 2016-08-22 08:33 | EEG ---
DATE OF SERVICE: 08/21/2016 INDICATIONS FOR EXAMINATION: This patient is a 80 -year-old male being evaluated for left sided weakness and possible TIA. AGE: 80Y EEG FINDINGS: A routine 21 channel awake digital EEG recording was accomplished utilizing the 10-20 international system with bipolar and referential montages. The background activity in the most alert resting state consists of a low to medium amplitude, fairly well developed and well sustained 7-8 Hz activity over the posterior head regions. This posterior rhythm attenuates to eye opening. There is a small amount of low amplitude 18-20 Hz beta activity seen maximally over the anterior head regions. Muscle and movement artifacts were observed on a few occasions during the tracing. Hyperventilation was not performed. Photic stimulation at flash frequencies of 2-30 Hz produced a good symmetrical occipital driving response. No epileptiform discharges were seen. IMPRESSION: This EEG is within normal limits for the patient's age. The EEG failed to reveal any focal, lateralized or epileptiform abnormalities. Clinical correlation is recommended.
--- NOTE | 2016-08-22 10:47 | P.DS ---
Providers Date of admission: 08/19/16 10:30 Expected date of discharge: 08/22/16 Attending physician: Godfrey Samano Consults: 08/20/16 06:37 Consult Physician Routine Consulting Provider: Brittani Shah Consult Reason/Comments: tachycardia Do you want consulting provider notified?: Yes, Notify in am Primary care physician: [facility] Course: A 80-year-old male presented on the day of admission to the emergency room to be evaluated for left-sided weakness sudden onset after having an argument with his the day before. Patient denied any symptoms of chest pain shortness of breath heart racing or heart palpitations dizziness or lightheadedness patient stated that he had some weakness in his left leg as well as tingling on the left side of the face. Patient stated that he woke up around 5:30 in the morning with the above-mentioned symptoms. Patient presented to the emergency room to be evaluated. Patient was followed throughout the hospitalization by neurology service. Patient did have an MRI of the brain showed no acute process. Additionally cardiology did participate in the plan of care as well patient had 2 sets of cardiac enzymes which were negative. Cardiology indicated there was no cardiac issues. Does have a history of prior coronary artery disease with revascularization. Patient did have while hospitalized one episode of a narrow complex tachycardia short episode consistent with SVT. No further episodes. Patient did have a echocardiogram done it did show mild aortic stenosis. Left ventricular systolic function low normal with an EF between 50 and 55%. Carotid Doppler studies were negative. Initial brain scan was negative and subsequent the patient was felt to be appropriate to be discharged home there were no further episodes the symptoms had resolved Impression discharge diagnosis Present on admission left side weakness facial numbness suspect due to a TIA Isolated one episode of SVT supraventricular tachycardia resolved Obesity BMI 36 Acute right artery ischemic stroke MCA middle cerebral artery TIA Diabetic neuropathy suspect due to type 2 diabetes Known coronary artery disease with prior coronary artery bypass grafting Type 2 diabetes mellitus without complications A1c 7.8 1 requiring Hypertension essential controlled The above dictated assessment and findings were discussed with dr jazmyne Xavier and the plan of care have been dictated as directed. Marsha Hernandez nurse practitioner acting as a scribe for dr samano Plan - Discharge Summary New Discharge Prescriptions: Carvedilol [Coreg*] 12.5 mg PO BID-W/MEALS #60 tab Discharge Medication List Aspirin EC [Ecotrin Low Dose] 81 mg PO DAILY 08/19/16 [History] Clopidogrel [Plavix] 75 mg PO DAILY 08/19/16 [History] Fish Oil/Dha/Epa [Fish Oil 1,200 mg Fish Oil] 1 cap PO DAILY 08/19/16 [History] Insulin NPL/Insulin Lispro [humaLOG Mix 50-50 Kwikpen] 12 units SQ W/LUNCH 08/19 [History] Insulin NPL/Insulin Lispro [humaLOG Mix 50-50 Kwikpen] 37 units SQ W/BRKFST [History] Insulin NPL/Insulin Lispro [humaLOG Mix 50-50 Kwikpen] 42 units SQ W/SUPPER [History] L.acidoph,Paracasei, B.lactis [Probiotic] 1 cap PO DAILY 08/19/16 [History] Lisinopril [Zestril] 10 mg PO DAILY 08/19/16 [History] Multivitamins, Thera [Multivitamin (formulary)] 1 tab PO DAILY 08/19/16 [History ] Simvastatin [Zocor] 40 mg PO HS 08/19/16 [History] Carvedilol [Coreg*] 12.5 mg PO BID-W/MEALS #60 tab 08/22/16 [Rx] Follow up Appointment(s)/Referral(s): Godfrey Bertrand DO [Primary Care Provider] - 1-2 days Jed Dickerson MD [STAFF PHYSICIAN] - 2 Weeks Discharge Disposition: HOME SELF-CARE
--- NOTE | 2016-08-22 14:53 | P.PN ---
Subjective This patient is a 80-year-old white male who was seen yesterday on neurology consultation for evaluation of left-sided weakness. Patient initially presented to the emergency room with resulting left arm and leg weakness. Patient also experienced paresthesias on his left side and was brought in for evaluation of TIA versus stroke. Initial computed tomography scan of the brain failed to reveal any significant changes. He has been scheduled for MRI of the brain for further evaluation. Patient has a history of coronary artery disease and has undergone stenting as well as CABG several years ago. He is followed by a [facility] and the [facility]. Carotid ultrasound was completed and failed to reveal any significant carotid artery stenosis. One set of cardiac enzymes came back unremarkable. His EKG shows normal sinus rhythm with first- degree AV block. We're waiting follow-up cardiac enzyme studies to be done. Overall the patient continues to do fairly well today. He underwent laboratory testing and we will follow up on those results later today as well. Patient continues on Plavix plus aspirin for secondary stroke prevention. He is also being treated with atorvastatin 20 mg daily for hyperlipidemia. Patient states he has had no further recurrence of left-sided weakness or paresthesias this morning. He was able to ambulate in the hallway without having any give way weakness in his left lower extremity. He will likely be able to complete a routine EEG today for further evaluation. Patient was able to complete MRI of the brain today. MRI was reviewed and fails to reveal any evidence of acute stroke. Patient is to continue on Plavix and aspirin at this time for secondary stroke prevention. Patient with possible discharge plan to home later today. He may follow-up in the outpatient neurology clinic in 3-4 weeks. His overall prognosis at this time remains guarded. Objective - Vital Signs Vital signs: Vital Signs Temp 97.7 F 08/22/16 07:00 Pulse 71 08/22/16 08:00 Resp 18 08/22/16 08:00 BP 183/82 08/22/16 07:00 Pulse Ox 95 08/22/16 07:00 Intake & Output 08/21/16 08/22/16 08/22/16 18:59 06:59 18:59 Intake Total 200 760 Balance 200 760 Weight 118.3 kg Intake: Oral 200 760 Other: Voiding Method Toilet Toilet Toilet Urinal Urinal Urinal # Voids 1 # Bowel Movements 0 - Exam Physical examination: PHYSICAL EXAMINATION: Patient is resting comfortably in bed. VITAL SIGNS: Blood pressure is [180/82]. Heart rate is [71]. Respiration is [18] . Temperature is [97.7]. HEENT: Head is atraumatic, neck is supple, there were no carotid bruits. CHEST: Lungs are clear to auscultation and percussion. CARDIAC: S1, S2 normal rate and rhythm. There is no murmur. ABDOMEN: Soft and nontender. Bowel sounds are present. EXTREMITIES: There is no pedal edema. Peripheral pulses are present. Neurological examination: Patient's neurological examination is unchanged from yesterday. - Labs CBC & Chem 7: 08/19/16 08:31 08/19/16 08:31 Labs: Abnormal Lab Results - Last 24 Hours (Table) 08/21/16 08/22/16 Range/Units 17:02 06:34 POC Glucose (mg/dL) 116 H 156 H (75-99) mg/dL Assessment and Plan (1) Acute right arterial ischemic stroke, MCA (middle cerebral artery) Status: Acute Code(s): I63.511 - CEREB INFRC D/T UNSP OCCLS OR STENOS OF RIGHT MID CEREB ART (2) Diabetes mellitus Status: Acute Code(s): E11.9 - TYPE 2 DIABETES MELLITUS WITHOUT COMPLICATIONS (3) Coronary artery disease involving coronary bypass graft Status: Acute Code(s): I25.810 - ATHEROSCLEROSIS OF CABG W/O ANGINA PECTORIS (4) Diabetic neuropathy Status: Acute Code(s): E11.40 - TYPE 2 DIABETES MELLITUS WITH DIABETIC NEUROPATHY, UNSP Plan: This patient is a 80-year-old right-handed white male admitted to Hospital with symptoms of acute left-sided paresthesias and weakness. Symptoms began at 5:30 in the morning and he finally was brought into the emergency room for further evaluation. He was seen in the ER by Dr. Zapien. And went a computed tomography scan of the brain results which are noted above. Subsequent admitted to the hospital. He continues to have mild left-sided paresthesia. Skull history suggests possibility of acute right hemispheric stroke. We have recommended he undergo a complete stroke evaluation. All of his stroke risk factors are reviewed with him today in detail. We would recommend an MRI of the brain for further evaluation. CAT scan of the brain failed to reveal any acute stroke. The patient is ALLERGIC to aspirin so in this case would consider Plavix for secondary stroke prevention. Patient was able to complete an MRI of the brain today. MRI reveals no acute stroke at this time. There are chronic ischemic changes noted. Patient is to continue on Plavix for secondary stroke prevention. He is being considered for discharge home later today and may follow-up in the outpatient neurology clinic in 3-4 weeks. His overall prognosis at this time remains very guarded. We will continue close neurological follow-up for this patient during this admission.
== END 2016-08-22 11:36 | disposition home or self-care (01) | DRG 69 ==
LOC: EC 07:44 → 6SEL 10:30 → 5MS5E 08-20 18:07
PROVIDERS: ADMIT Family Medicine; ATTEND Family Medicine
DX: G45.9 Transient cerebral ischemic attack, unspecified (principal); E11.40 Type 2 diabetes mellitus with diabetic neuropathy, unspecified; I47.1 Supraventricular tachycardia; I35.0 Nonrheumatic aortic (valve) stenosis; I25.10 Atherosclerotic heart disease of native coronary artery without angina pectoris; I10 Essential (primary) hypertension; E78.5 Hyperlipidemia, unspecified; I44.0 Atrioventricular block, first degree; Z95.1 Presence of aortocoronary bypass graft; Z95.5 Presence of coronary angioplasty implant and graft; Z87.891 Personal history of nicotine dependence; Z88.6 Allergy status to analgesic agent; E66.9 Obesity, unspecified; Z68.36 Body mass index [BMI] 36.0-36.9, adult; Z88.0 Allergy status to penicillin; Z79.02 Long term (current) use of antithrombotics/antiplatelets; Z79.4 Long term (current) use of insulin; Z79.899 Other long term (current) drug therapy
CPT/HCPCS: 36415; 70450; 70551; 71020; 80053; 80061; 82550; 82553; 83036; 84443; 84484; 85025; 85610; 85730; 93005; 93306; 93880; 95819; 99285

== ENCOUNTER 2020-09-08 13:33 | Emergency (ER) | payer BC, MEDICARE ==
[2020-09-08 13:38] LABS: Glucose,Whole Blood 140 mg/dL (75-99)
[2020-09-08 13:44] VITALS: PULSE 52; RESP 16; TEMP 97.1
--- NOTE | 2020-09-08 13:45 | ED ---
General Adult HPI - General Stated complaint: hyperglycemia Time Seen by Provider: 09/08/20 13:33 Source: patient, RN notes reviewed, old records reviewed - History of Present Illness Initial comments: This is an 84-year-old male with past medical history of diabetes. Patient states she took 37 units of 50-50 this morning and did not eat afterwards. When EMS arrived he was unresponsive they gave the patient D50 and the patient became alert and oriented 2 and then they try to give him something to eat but he started to become unresponsive so they gave him a second amp of D50 after calling hospital for correction. Patient then became alert and oriented 2 again and was able to eat a peanut butter same as prior to arrival. Patient denies any pain patient denies chest pain difficulty breathing shortness breath per patient denies palpations. Patient denies headache patient denies numbness weakness. Patient denies any recent vomiting or diarrhea. Patient states he feels as though his abdomen is more distended than normal over the last couple of months and he's been telling his doctor this. Patient states she has chronic cellulitis of both legs. - Related Data Home Medications Medication Instructions Recorded Confirmed Aspirin EC [Ecotrin Low Dose] 81 mg PO DAILY 08/19/16 08/19/16 Clopidogrel [Plavix] 75 mg PO DAILY 08/19/16 08/19/16 Fish Oil/Dha/Epa [Fish Oil 1,200 1 cap PO DAILY 08/19/16 08/19/16 mg Fish Oil] Insulin Lispro Protamin/Lispro 12 units SQ W/LUNCH 08/19/16 08/19/16 [humaLOG Mix 50-50 Kwikpen] Insulin Lispro Protamin/Lispro 37 units SQ W/BRKFST 08/19/16 08/19/16 [humaLOG Mix 50-50 Kwikpen] Insulin Lispro Protamin/Lispro 42 units SQ W/SUPPER 08/19/16 08/19/16 [humaLOG Mix 50-50 Kwikpen] L.acidoph,Paracasei, B.lactis 1 cap PO DAILY 08/19/16 08/19/16 [Probiotic] Lisinopril [Zestril] 10 mg PO DAILY 08/19/16 08/19/16 Multivitamins, Thera [Multivitamin 1 tab PO DAILY 08/19/16 08/19/16 (formulary)] Simvastatin [Zocor] 40 mg PO HS 08/19/16 08/19/16 Previous Rx's Medication Instructions Recorded carvediloL [Coreg*] 12.5 mg PO BID-W/MEALS #60 tab 08/22/16 Allergies Allergy/AdvReac Type Severity Reaction Status Date / Time Penicillins Allergy Rapid Verified 08/19/16 10:44 Heart Rate aspirin AdvReac Nausea & Verified 08/19/16 10:44 Vomiting Review of Systems ROS Statement: Those systems with pertinent positive or pertinent negative responses have been documented in the HPI. ROS Other: All systems not noted in ROS Statement are negative. Past Medical History Past Medical History: Diabetes Mellitus History of Any Multi-Drug Resistant Organisms: None Reported Past Surgical History: Coronary Bypass/CABG Past Anesthesia/Blood Transfusion Reactions: No Reported Reaction Past Psychological History: No Psychological Hx Reported Past Alcohol Use History: None Reported Past Drug Use History: None Reported General Exam - General Exam Comments Initial Comments: GENERAL: Patient is well-developed and well-nourished. Patient is nontoxic and well- hydrated and is in no acute distress. ENT: Neck is soft and supple. No significant lymphadenopathy is noted. Oropharynx is clear. Moist mucous membranes. Neck has full range of motion without eliciting any pain. EYES: The sclera were anicteric and conjunctiva were pink and moist. Extraocular movements were intact and pupils were equal round and reactive to light. Eyelids were unremarkable. PULMONARY: Unlabored respirations. Good breath sounds bilaterally. No audible rales rhonchi or wheezing was noted. CARDIOVASCULAR: There is a regular rate and rhythm without any murmurs gallops or rubs. ABDOMEN: Soft and nontender with normal bowel sounds. Patient has mild distention of his abdomen SKIN: Skin is clear with no lesions or rashes and otherwise unremarkable. NEUROLOGIC: Patient is alert and oriented x3. Cranial nerves II through XII are grossly intact. Motor and sensory are also intact. Normal speech, volume and content. Symmetrical smile. MUSCULOSKELETAL: Normal extremities with adequate strength and full range of motion. She has chronic saline is in the bilateral extremities LYMPHATICS: No significant lymphadenopathy is noted PSYCHIATRIC: Normal psychiatric evaluation. Course Vital Signs 09/08/20 13:38 Temperature 97.1 F L Pulse Rate 52 L Respiratory 16 Rate Blood Pressure 141/71 O2 Sat by Pulse 99 Oximetry Medical Decision Making - Medical Decision Making EKG shows sinus bradycardia 50 bpm FL interval is 264 QRS is 118 QT interval 558 QTC is 508. Patient's EKG shows some inverted T waves in leads V5 and V6 as well as 1 and aVL Patient ate well in the emergency department he was at his baseline and had no complaints at this time - Lab Data Result diagrams: 09/08/20 13:51 09/08/20 13:51 Lab Results 09/08/20 09/08/20 09/08/20 Range/Units 13:37 13:51 13:51 WBC 4.3 (3.8-10.6) k/uL RBC 4.52 (4.30-5.90) m/uL Hgb 12.4 L (13.0-17.5) gm/dL Hct 38.9 L (39.0-53.0) % MCV 85.9 (80.0-100.0) fL MCH 27.4 (25.0-35.0) pg MCHC 31.9 (31.0-37.0) g/dL RDW 15.4 (11.5-15.5) % Plt Count 154 (150-450) k/uL MPV 8.1 Neutrophils % 73 % Lymphocytes % 10 % Monocytes % 11 % Eosinophils % 3 % Basophils % 0 % Neutrophils # 3.1 (1.3-7.7) k/uL Lymphocytes # 0.5 L (1.0-4.8) k/uL Monocytes # 0.5 (0-1.0) k/uL Eosinophils # 0.1 (0-0.7) k/uL Basophils # 0.0 (0-0.2) k/uL Manual Slide Review Performed Hypochromasia Moderate Poikilocytosis (manual Present Sodium (137-145) mmol/L Potassium (3.5-5.1) mmol/L Chloride (98-107) mmol/L Carbon Dioxide (22-30) mmol/L Anion Gap mmol/L BUN (9-20) mg/dL Creatinine (0.66-1.25) mg/dL Est GFR (CKD-EPI)AfAm (>60 ml/min/1.73 sqM) Est GFR (CKD-EPI)NonAf (>60 ml/min/1.73 sqM) Glucose (74-99) mg/dL POC Glucose (mg/dL) 140 H (75-99) mg/dL POC Glu Project Coordinator Rn ID Julita Grier Calcium (8.4-10.2) mg/dL Total Bilirubin (0.2-1.3) mg/dL AST (17-59) U/L ALT (4-49) U/L Alkaline Phosphatase (38-126) U/L Total Protein (6.3-8.2) g/dL Albumin (3.5-5.0) g/dL Urine Color Dark Yellow Urine Appearance Clear (Clear) Urine pH 6.0 (5.0-8.0) Ur Specific [place] 1.021 (1.001-1.035) Urine Protein 1+ H (Negative) Urine Glucose (UA) 1+ H (Negative) Urine Ketones Negative (Negative) Urine Blood Negative (Negative) Urine Nitrite Negative (Negative) Urine Bilirubin 1+ H (Negative) Urine Urobilinogen >12.0 (<2.0) mg/dL Ur Leukocyte Esterase Negative (Negative) Urine RBC <1 (0-5) /hpf Urine WBC 1 (0-5) /hpf Urine Mucus Rare H (None) /hpf 09/08/20 Range/Units 13:51 WBC (3.8-10.6) k/uL RBC (4.30-5.90) m/uL Hgb (13.0-17.5) gm/dL Hct (39.0-53.0) % MCV (80.0-100.0) fL MCH (25.0-35.0) pg MCHC (31.0-37.0) g/dL RDW (11.5-15.5) % Plt Count (150-450) k/uL MPV Neutrophils % % Lymphocytes % % Monocytes % % Eosinophils % % Basophils % % Neutrophils # (1.3-7.7) k/uL Lymphocytes # (1.0-4.8) k/uL Monocytes # (0-1.0) k/uL Eosinophils # (0-0.7) k/uL Basophils # (0-0.2) k/uL Manual Slide Review Hypochromasia Poikilocytosis (manual Sodium 139 (137-145) mmol/L Potassium 3.7 (3.5-5.1) mmol/L Chloride 102 (98-107) mmol/L Carbon Dioxide 31 H (22-30) mmol/L Anion Gap 6 mmol/L BUN 28 H (9-20) mg/dL Creatinine 1.49 H (0.66-1.25) mg/dL Est GFR (CKD-EPI)AfAm 50 (>60 ml/min/1.73 sqM) Est GFR (CKD-EPI)NonAf 43 (>60 ml/min/1.73 sqM) Glucose 121 H (74-99) mg/dL POC Glucose (mg/dL) (75-99) mg/dL POC Glu Project Coordinator Rn ID Calcium 8.8 (8.4-10.2) mg/dL Total Bilirubin 3.6 H (0.2-1.3) mg/dL AST 27 (17-59) U/L ALT 13 (4-49) U/L Alkaline Phosphatase 71 (38-126) U/L Total Protein 6.1 L (6.3-8.2) g/dL Albumin 3.1 L (3.5-5.0) g/dL Urine Color Urine Appearance (Clear) Urine pH (5.0-8.0) Ur Specific [place] (1.001-1.035) Urine Protein (Negative) Urine Glucose (UA) (Negative) Urine Ketones (Negative) Urine Blood (Negative) Urine Nitrite (Negative) Urine Bilirubin (Negative) Urine Urobilinogen (<2.0) mg/dL Ur Leukocyte Esterase (Negative) Urine RBC (0-5) /hpf Urine WBC (0-5) /hpf Urine Mucus (None) /hpf Disposition Clinical Impression: Hypoglycemia, Renal insufficiency Disposition: HOME SELF-CARE Condition: Good Instructions (If sedation given, give patient instructions): Hypoglycemia in a Person with Diabetes (ED) Additional Instructions: Patient needs to eat after he was taken his insulin in the future Is patient prescribed a controlled substance at d/c from ED?: No Referrals: None,Stated [Primary Care Provider] - 1-2 days Time of Disposition: 15:17
[2020-09-08] MEDS ORDERED: ONDANSETRON 4 MG ODT STARTER PACK 2 TAB BTL PO PRN (13:48)
[2020-09-08 14:20] LABS: Albumin 3.1 g/dL (3.5-5.0); Calcium 8.8 mg/dL (8.4-10.2); Potassium 3.7 mmol/L (3.5-5.1); Total Bilirubin 3.6 mg/dL (0.2-1.3); Total Protein 6.1 g/dL (6.3-8.2)
[2020-09-08 14:36] LABS: Basophils % (A) 0 %; Eosinophils # (A) 0.1 k/uL (0-0.7); Eosinophils % (A) 3 %; HCT 38.9 % (39.0-53.0); HGB 12.4 gm/dL (13.0-17.5); Hypochromasia Moderate; Lymphocytes # (A) 0.5 k/uL (1.0-4.8); Lymphocytes % (A) 10 %; MCH 27.4 pg (25.0-35.0); MCHC 31.9 g/dL (31.0-37.0); MCV 85.9 fL (80.0-100.0); Mean Platelet Volume 8.1; Monocytes # (A) 0.5 k/uL (0-1.0); Monocytes % (A) 11 %; Neutrophils # (A) 3.1 k/uL (1.3-7.7); Neutrophils % (A) 73 %; Platelet Count 154 k/uL (150-450); RBC 4.52 m/uL (4.30-5.90); RDW 15.4 % (11.5-15.5); WBC 4.3 k/uL (3.8-10.6)
--- NOTE | 2020-09-08 15:05 | XR ---
EXAMINATION TYPE: XR KUB DATE OF EXAM: 09/08/2020 Comparison: None Clinical History: 84-year-old male Distended abdomen Findings: Supine imaging limited for assessment of free air. No dilated small bowel. Rounded calcification in t he right side of the pelvis suggesting a nonobstructive calculus. Scattered mild stool burden. Impression: Nonobstructive bowel gas pattern. Mild overall stool burden.
[2020-09-08 15:11] LABS: Appearance,Urine Clear (Clear); Bilirubin,Urine 1+ (Negative); Blood,Urine Negative (Negative); Color,Urine Dark Yellow; Glucose,Urine (UA) 1+ (Negative); Ketones,Urine Negative (Negative); Leukocyte Esterase,Urine Negative (Negative); Mucus,Urine Rare /hpf; Nitrite,Urine Negative (Negative); Protein,Urine 1+ (Negative); RBC,Urine <1 /hpf (0-5); Specific Gravity,Urine 1.021 (1.001-1.035); Urobilinogen,Urine >12.0 mg/dL (<2.0); WBC,Urine 1 /hpf (0-5)
[2020-09-08 15:15] LABS: Poikilocytosis (M) Present
[2020-09-08 15:48] VITALS: BP 144/66
[2020-09-08 15:48] LABS: Glucose,Whole Blood 134 mg/dL (75-99)
== END 2020-09-08 16:40 | disposition home or self-care (01) ==
LOC: EC 13:33
DX: E11.649 Type 2 diabetes mellitus with hypoglycemia without coma (principal); N28.9 Disorder of kidney and ureter, unspecified; Z79.02 Long term (current) use of antithrombotics/antiplatelets; Z79.4 Long term (current) use of insulin; Z79.82 Long term (current) use of aspirin; Z88.0 Allergy status to penicillin; Z88.6 Allergy status to analgesic agent; Z95.1 Presence of aortocoronary bypass graft
CPT/HCPCS: 36415; 74018; 80053; 81001; 85025; 93005; 99285